=== PATIENT | female | born 2000 | race American Indian/Alaskan Native ===

== ENCOUNTER 2021-11-25 06:21 | Emergency (ER) | payer OTHER ==
[2021-11-25 06:29] VITALS: BP 130/89
== END 2021-11-25 11:35 | disposition left against medical advice (07) ==
LOC: ED 06:21
DX: J45.909 Unspecified asthma, uncomplicated (principal); Z53.21 Procedure and treatment not carried out due to patient leaving prior to being seen by health care provider

== ENCOUNTER 2021-11-25 18:13 | Emergency (ER) | payer SELFPAY | END 2021-11-25 18:18 | disposition left against medical advice (07) | LOC: ED 18:13 | DX: R07.89 Other chest pain (principal); R06.00 Dyspnea, unspecified; Z53.21 Procedure and treatment not carried out due to patient leaving prior to being seen by health care provider ==